=== PATIENT | male | born 1950 | race Caucasian/White ===

== ENCOUNTER → 2023-04-19 | Outpatient (CLI) | payer MEDICARE, BC ==
[2023-04-19 11:07] LABS: Basophils # (A) 0.09 X 10*3/uL (0.00-0.10); Basophils % (A) 1.4 %; Eosinophils # (A) 0.34 X 10*3/uL (0.04-0.35); Eosinophils % (A) 5.4 %; HGB 14.4 d/dL (13.0-17.0); Lymphocytes # (A) 1.58 X 10*3/uL (0.90-5.00); MCH 34.6 pg (27.0-32.0); MCHC 32.7 d/dL (32.0-37.0); MCV 105.8 FL (80.0-97.0); Mean Platelet Volume 10.2 FL (9.5-12.2); Monocytes # (A) 0.72 X 10*3/uL (0.20-1.00); Monocytes % (A) 11.4 %; NRBC Per 100 WBC 0 X 10*3/uL (0.00-0.01); Neutrophils # (A) 3.57 X 10*3/uL (1.80-7.70); Neutrophils % (A) 56.5 %; Platelet Count 214 X 10*3/uL (140-440); RBC 4.16 X 10*6/uL (4.40-5.60); RDW 11.5 % (11.5-14.5); WBC 6.32 X 10*3/uL (4.50-10.00)
[2023-04-19 11:22] LABS: ALT 20 U/L (10-49); AST 29 U/L (14-35); Albumin 4.2 d/dL (3.8-4.9); Albumin/Globulin Ratio 1.68 Ratio (1.60-3.17); Alkaline Phosphatase 124 U/L (41-126); BUN/Creat Ratio 14.88 Ratio (12.00-20.00); Blood Urea Nitrogen 11.9 mg/dL (9.0-27.0); Calcium 9.6 mg/dL (8.7-10.3); Carbon Dioxide 27.1 mmol/L (21.6-31.8); Chloride 103 mmol/L (96-109); Globulin 2.5 d/dL (1.6-3.3); Glucose 78 mg/dL (70-110); Potassium 4.2 mmol/L (3.5-5.5); Sodium 141 mmol/L (135-145); Total Bilirubin 0.8 mg/dL (0.3-1.2); Total Protein 6.7 d/dL (6.2-8.2)
== END | disposition home or self-care (01) ==
LOC: LABWHC1 06:54
PROVIDERS: ATTEND Internal Medicine Gastroenterology
DX: F10.988 Alcohol use, unspecified with other alcohol-induced disorder (principal)
CPT/HCPCS: 36415; 80053; 85025

== ENCOUNTER → 2023-10-18 | Outpatient (CLI) | payer MEDICARE, BC ==
[2023-10-18 16:26] LABS: Basophils % (A) 0.9 %; Eosinophils % (A) 5.1 %; HCT 45.8 % (39.6-50.0); HGB 15.8 g/dL (13.0-17.0); Lymphocytes % (A) 28.4 %; MCH 33.7 pg (27.0-32.0); MCHC 34.5 g/dL (32.0-37.0); MCV 97.7 FL (80.0-97.0); Mean Platelet Volume 10.5 FL (9.5-12.2); Monocytes % (A) 8.3 %; NRBC Per 100 WBC 0 X 10*3/uL (0.00-0.01); Neutrophils % (A) 57.2 %; Platelet Count 199 X 10*3/uL (140-440); RBC 4.69 X 10*6/uL (4.40-5.60); RDW 12.6 % (11.5-14.5); WBC 7.99 X 10*3/uL (4.50-10.00)
[2023-10-18 16:27] LABS: Basophils # (A) 0.07 X 10*3/uL (0.00-0.10); Eosinophils # (A) 0.41 X 10*3/uL (0.04-0.35); Lymphocytes # (A) 2.27 X 10*3/uL (0.90-5.00); Monocytes # (A) 0.66 X 10*3/uL (0.20-1.00); Neutrophils # (A) 4.57 X 10*3/uL (1.80-7.70)
[2023-10-18 16:33] LABS: ALT 18 U/L (10-49); AST 21 U/L (14-35); Albumin 4.5 g/dL (3.8-4.9); Albumin/Globulin Ratio 1.96 Ratio (1.60-3.17); Alkaline Phosphatase 105 U/L (41-126); Blood Urea Nitrogen 13.2 mg/dL (9.0-27.0); Calcium 9.3 mg/dL (8.7-10.3); Carbon Dioxide 26.1 mmol/L (21.6-31.8); Chloride 102 mmol/L (96-109); Globulin 2.3 g/dL (1.6-3.3); Glucose 99 mg/dL (70-110); Potassium 4.6 mmol/L (3.5-5.5); Sodium 140 mmol/L (135-145); Total Bilirubin 0.7 mg/dL (0.3-1.2); Total Protein 6.8 g/dL (6.2-8.2)
== END | disposition home or self-care (01) ==
LOC: LABWHC1 06:42
PROVIDERS: ATTEND Internal Medicine Gastroenterology
DX: F10.988 Alcohol use, unspecified with other alcohol-induced disorder (principal)
CPT/HCPCS: 36415; 80053; 85025